=== PATIENT | female | born 1965 | race Caucasian/White ===

== ENCOUNTER 2017-04-05 08:51 | Emergency (ER) | payer MEDICARE ==
[2014-08-21 08:55] VITALS: BMI 38.8
[~2017-04-05 08:51] MED LIST: ASPIRIN EC81 M1 PO; ATIVAN0.5 MG PO; BACTRIM 400-801 TAB PO; BIOTIN PO; CELEXA40 MG PO; COREG 3.1253.125 MG PO; GLIPIZIDE10 MG PO; GLUCOTROL 5 MG T5 MG PO; HYDROCODONE-APA1 TAB PO; LEVOTHROID100 MCG PO; LIPITOR10 MG PO; LISINOPRIL10 MG GT; LISINOPRIL10 MG PO; LOPRESSOR25 MG PO; PAXIL PO; PEPCID20 MG PO; REQUIP XL2 MG PO; TRAZODONE HCL50 MG PO; VITAMIN B-1000 MCG/M SQ; VITAMIN D31000 UNI2 PO; ZANTAC PO; ZOCOR20 MG PO
[2017-04-05 09:52] LABS: APPEARANCE HAZY (CLEAR); BILIRUBIN NEGATIVE (NEGATIVE); COLOR YELLOW (YELLOW); GLUCOSE NEGATIVE (NEGATIVE); KETONE NEGATIVE (NEGATIVE); LEUKOCYTE ESTERASE 1+ (NEGATIVE); NITRITE POSITIVE (NEGATIVE); PROTEIN NEGATIVE (NEGATIVE); SPECIFIC GRAVITY 1.015 (1.005-1.020); UROBILINOGEN NORMAL (NORMAL)
[2017-04-05 09:54] LABS: BACTERIA MANY /hpf (NONE SEEN); EPITHELIAL CELLS 0-5 /hpf (0-5); RED CELLS - URINE 0-5 /hpf (0-5)
[2017-04-05 10:39] LABS: BASOPHILS 0.2 % (0-2); EOSINOPHILS 2.8 % (0-7); HEMATOCRIT 42.3 % (36.0-48.0); HEMOGLOBIN 13.7 g/dL (12-16); IMMATURE GRANULOCYTES 0.2 % (0-5); LYMPHOCYTES 23.9 % (15-50); MCH 29.8 pg (26.0-34.0); MCHC 32.4 g/dL (31.0-37.0); NEUTROPHILS 65.9 % (40-80); PLATELET COUNT 352 10x3/uL (130-400); RDW 13.6 % (11.5-14.5); WBC 12.3 10x3/uL (4.8-10.8)
[2017-04-05 10:58] LABS: ALBUMIN 3.5 g/dL (3.4-5.0); ALKALINE PHOSPHATASE 74 U/L (46-116); ALT (SGPT) 44 U/L (10-68); CALC OSMOLALITY 278 mosm/kg (275-300); CARBON DIOXIDE 26.3 mmol/L (21.0-32.0); CHLORIDE - SERUM 103 mmol/L (98-107); CREATININE - SERUM 0.8 mg/dL (0.6-1.3); GLUCOSE 163 mg/dL (74-106); POTASSIUM - SERUM 3.9 mmol/L (3.5-5.1); PROTEIN - SERUM 6.8 g/dL (6.4-8.2); SODIUM 138 mmol/L (136-145); UREA NITROGEN 10 mg/dL (7-18); eGFR NON AFRICAN AMERICAN 81 mL/min (90-120)
[2017-04-05 11:22] LABS: PRO BNP 9 pg/mL (0-125)
== END 2017-04-05 13:00 | disposition home or self-care (01) ==
LOC: D.ER 08:51
PROVIDERS: Emergency Medicine
DX: N39.0 Urinary tract infection, site not specified (principal); E86.0 Dehydration

== ENCOUNTER 2017-06-19 09:00 | Inpatient (IN) | payer MEDICARE ==
[~2017-06-19] VITALS: Ht 167.6 cm; Wt 101.2 kg
[~2017-06-19 09:00] MED LIST changes: -PAXIL PO; +PAXIL40 MG PO; +ZANTAC 7575 MG PO; -ZANTAC PO
[2017-06-19 09:42] LABS: BASOPHILS 0.2 % (0-2); EOSINOPHILS 5.5 % (0-7); HEMATOCRIT 38.7 % (36.0-48.0); HEMOGLOBIN 12.9 g/dL (12-16); IMMATURE GRANULOCYTES 0.3 % (0-5); MCH 30.2 pg (26.0-34.0); MCHC 33.3 g/dL (31.0-37.0); MCV 90.6 fL (80.0-100.0); MEAN PLATELET VOLUME 9.3 fL (7.4-10.4); MONOCYTES 11.3 % (2-11); NEUTROPHILS 65.7 % (40-80); PLATELET COUNT 327 10x3/uL (130-400); RBC 4.27 10x6/uL (4.00-5.40); RDW 13.7 % (11.5-14.5); WBC 13.3 10x3/uL (4.8-10.8)
[2017-06-19 09:58] LABS: ALBUMIN 3.2 g/dL (3.4-5.0); ALKALINE PHOSPHATASE 73 U/L (46-116); ALT (SGPT) 24 U/L (10-68); BILIRUBIN - TOTAL 0.45 mg/dL (0.2-1.3); CALC OSMOLALITY 274 mosm/kg (275-300); CALCIUM 8.4 mg/dL (8.5-10.1); CARBON DIOXIDE 28.8 mmol/L (21.0-32.0); CHLORIDE - SERUM 100 mmol/L (98-107); CREATININE - SERUM 0.7 mg/dL (0.6-1.3); GLUCOSE 130 mg/dL (74-106); POTASSIUM - SERUM 3.8 mmol/L (3.5-5.1); SODIUM 137 mmol/L (136-145); UREA NITROGEN 9 mg/dL (7-18); eGFR NON AFRICAN AMERICAN > 90 mL/min (90-120)
--- NOTE | 2017-06-19 12:05 | NUR ---
PT RECIEVED TO ROOM FROM ER. RESTING LUCAS, 02 AT 2L. RR ELEVATED, PT USES ACCESSORY MUSCLES TO BREATHE. O2 SAT IS 94, OTHER VS ARE STABLE. WILL RECONCILE HOME MEDS AND PERFORM ADMISSION ASSESSMENT, PT IN BED EATHING LUNCH, WILL CTM.
[2017-06-19 12:08] VITALS: BP 111/64; BMI 36.5
--- NOTE | 2017-06-19 13:00 | NUR ---
SPOKE TO JUAN PABLO AT [facility] FOR MED REC. REQUESTED THEM TO FAX IT TO US, INSTEAD READ OFF THE MED REC VIA TELEPHONE. MED REC COMPLETED.
[2017-06-19 13:06] LABS: PRO BNP 38 pg/mL (0-125)
--- NOTE | 2017-06-19 13:30 | NUR ---
SCDS PLACED ON PT AND PT EDUCATED ON PURPOSE. PT UP AD JOSELYN. INSTRUCTED TO REMOVE SCD PRIOR TO GETTING OOB.
[2017-06-19] MEDS ORDERED: GLUCOPHAGE850 MG PO (14:20)
[2017-06-19] MEDS ORDERED: GABAPENTIN100 MG PO (14:21)
[2017-06-19] MEDS ORDERED: PROVERA2.5 MG PO (14:22)
[2017-06-19] MEDS ORDERED: ZYPREXA2.5 MG PO (14:22)
[2017-06-19] MEDS ORDERED: ZANAFLEX2 M1 PO (14:23)
[2017-06-19 15:32] VITALS: BP 100/54
--- NOTE | 2017-06-19 18:02 | NUR ---
PT RESTING QUIETLY, RR EVEN AND UNLABORED, WILL GIVE REPORT ON PT CONDITION FOR THE DAY. GAVE PT NUMBER FOR FACILITY SHE IS LIVING AT ([facility]).
[2017-06-19 20:00] VITALS: BP 109/47
--- NOTE | 2017-06-19 20:15 | NUR ---
PT LYING IN BED, AWAKE, ALERT, DENIES ANY NEEDS. CONTINUE TO MONITOR CLOSELY. BED LOW, CALL LIGHT IN REACH, SIDE RAILS X 2, HOB 30-35 DEGREES.
[2017-06-20 01:15] VITALS: BP 105/63
--- NOTE | 2017-06-20 01:40 | NUR ---
PT CALLED REQUESTING THE "REST OF HER BEDTIME MEDICATIONS", STATING THAT SHE TAKES REQUIP AT BEDTIME, SHE SUFFERS FROM SEVERE RESTLESS LEG SYNDROME. PT IS ALSO ASKING ABOUT OTHER MEDICATIONS THAT SHE TAKES AT BEDTIME, THAT SHE HAS NOT BEEN GETTING WHILE IN HERE. I ASSURED PT THAT I WOULD REVIEW WITH [facility] NURSE SO THEY CAN SPEAK TO THE PHYSICIAN. AT THIS POINT, PT CANNOT TELL ME WHAT THE MEDICATIONS ARE. UPON REVIEWING MED REC, PT HAS BEEN TAKING ZYPREXA BID, BUT IT HAS NOT BEEN CONTINUED HERE. THAT COULD BE ONE OF THE MEDS SHE IS TALKING ABOUT. PT DENIES ANY OTHER NEEDS. PT STATES SHE IS UNABLE TO SLEEP AT THIS TIME. I WILL CONTINUE TO PROVIDE SUPPORTIVE CARE AND CONTINUE TO MONITOR PT CLOSELY.
[2017-06-20 04:30] VITALS: BP 115/66
[2017-06-20 06:50] LABS: BASOPHILS 0.1 % (0-2); EOSINOPHILS 0 % (0-7); HEMATOCRIT 38.5 % (36.0-48.0); HEMOGLOBIN 12.5 g/dL (12-16); IMMATURE GRANULOCYTES 0.4 % (0-5); LYMPHOCYTES 12.5 % (15-50); MCH 29.3 pg (26.0-34.0); MCHC 32.5 g/dL (31.0-37.0); MCV 90.4 fL (80.0-100.0); MEAN PLATELET VOLUME 9.8 fL (7.4-10.4); MONOCYTES 4.9 % (2-11); NEUTROPHILS 82.1 % (40-80); PLATELET COUNT 373 10x3/uL (130-400); RBC 4.26 10x6/uL (4.00-5.40); RDW 13.4 % (11.5-14.5); WBC 10.8 10x3/uL (4.8-10.8)
[2017-06-20 07:10] LABS: ANION GAP 8.2 mmol/L (8-16); BILIRUBIN - TOTAL 0.2 mg/dL (0.2-1.3); CARBON DIOXIDE 29.7 mmol/L (21.0-32.0); CREATININE - SERUM 0.9 mg/dL (0.6-1.3); POTASSIUM - SERUM 3.9 mmol/L (3.5-5.1); PROTEIN - SERUM 6.8 g/dL (6.4-8.2)
--- NOTE | 2017-06-20 08:39 | NUR ---
AM ROUNDING DONE WITH PATIENT LAYING ON RIGHT SIDE WITH O2 AT 3L PER NC AND HUM. WATER. RIGHT FA SEEN WITH SALINE LOCK. BILATERAL SCD'S ARE ON. DENIES ANY NEEDS AT PRESENT TIME. WILL CPOC.
[2017-06-20 10:24] VITALS: BP 106/48
--- NOTE | 2017-06-20 10:39 | NUR ---
PT AWAKE FAINT EXPIRATORY WHEEZING NOTED TO RIGHT APICAL AREA OF CHEST. PT SPO2 94 ON 2L NC. PT DISPLAYS NO S/S OF DYPSNEA OR RESPIRATORY DISTRESS. WILL CONTINUE TO ASSESS.
[2017-06-20 12:00] VITALS: BP 112/68
[2017-06-20 13:43] VITALS: Ht 167.6 cm; Wt 101.2 kg
--- NOTE | 2017-06-20 17:20 | NUR ---
PATIENT IS UP IN THE CHAIR AT THIS TIME.
[2017-06-20 17:43] VITALS: BP 122/62
[2017-06-20 20:00] VITALS: BP 118/65
--- NOTE | 2017-06-20 21:07 | NUR ---
PT AWAKE, ALERT, ORIENTED, REQUESTING PRN PAIN MEDICATION, DENIES ANY NEEDS. CONTINUE TO MONITOR CLOSELY. BED LOW, CALL LIGHT IN REACH, SIDE RAILS X 2, HOB 35-40 DEGREES.
--- NOTE | 2017-06-20 21:35 | NUR ---
PAGED DR. DOBSON TO GET REQUIP CHANGED FROM AM TO QHS PER PT REQUEST, SHE STATES SHE DOES NOT SLEEP WITHOUT IT R/T HER RLS. DR. DOBSON DID AUTHORIZE THE CHANGE AND AUTHORIZED TO GIVE THE FIRST DOSE THIS EVENING.
[2017-06-21 05:11] VITALS: BP 124/64
[2017-06-21 05:13] LABS: BASOPHILS 0.1 % (0-2); EOSINOPHILS 0.1 % (0-7); HEMATOCRIT 37.7 % (36.0-48.0); HEMOGLOBIN 12.4 g/dL (12-16); IMMATURE GRANULOCYTES 0.3 % (0-5); MCH 29.9 pg (26.0-34.0); MCHC 32.9 g/dL (31.0-37.0); MCV 90.8 fL (80.0-100.0); MEAN PLATELET VOLUME 9.7 fL (7.4-10.4); MONOCYTES 6.3 % (2-11); NEUTROPHILS 85.2 % (40-80); PLATELET COUNT 397 10x3/uL (130-400); RBC 4.15 10x6/uL (4.00-5.40); RDW 13.6 % (11.5-14.5)
[2017-06-21 05:30] LABS: ALBUMIN 3.1 g/dL (3.4-5.0); ALKALINE PHOSPHATASE 62 U/L (46-116); ALT (SGPT) 21 U/L (10-68); CALCIUM 8.7 mg/dL (8.5-10.1); CHLORIDE - SERUM 101 mmol/L (98-107); CREATININE - SERUM 0.8 mg/dL (0.6-1.3); GLUCOSE 378 mg/dL (74-106); MAGNESIUM - SERUM 1.6 mg/dL (1.8-2.4); PHOSPHOROUS 4.5 mg/dL (2.5-4.9); PROTEIN - SERUM 6.5 g/dL (6.4-8.2); SODIUM 136 mmol/L (136-145); eGFR NON AFRICAN AMERICAN 81 mL/min (90-120)
[2017-06-21 05:32] LABS: CALC OSMOLALITY 290 mosm/kg (275-300); POTASSIUM - SERUM 4.7 mmol/L (3.5-5.1); UREA NITROGEN 20 mg/dL (7-18)
--- NOTE | 2017-06-21 07:35 | NUR ---
AM ROUNDING DONE WITH NOT IN THE ROOM AT THIS TIME. SEEN COMING BACK IN WHHELCHAIR ON PORTABLE O2. WILL CPOC.
--- NOTE | 2017-06-21 08:48 | NUR ---
PATIENT TO REFUSE MIRALAX THIS AM, REPORTS THAT SHE HAD A LARGE BM YESTERDAY.
[2017-06-21 09:01] VITALS: BP 95/59
--- NOTE | 2017-06-21 14:25 | NUR ---
RECEIVING UPDRAFT TREATMENT AT THIS TIME. DENIES ANY FURTHER NEEDS. WILL CPOC.
[2017-06-21 16:18] VITALS: BP 110/59
[2017-06-21 17:59] VITALS: BP 114/69
--- NOTE | 2017-06-21 18:12 | NUR ---
PATIENT CALLED US TO THE ROOM STATING THAT THE DOCTOR SAID SHE COULD "TAKE OFF HER OXYGEN" WE TOLD HER THAT WE DID NOT HAVE AN ORDER FOR THIS AND TO LEAVE IT ON AT THIS PRESENT TIME. WILL CPOC.
[2017-06-21 20:00] VITALS: BP 103/58
--- NOTE | 2017-06-21 23:06 | NUR ---
NURSE ROUNDS 21:00 - PT SITTING UP IN BED, AWAKE, ALERT, ORIENTED, REQUESTING SOMETHING TO EAT. FSBS WAS 417. I EXPLAINED TO PT THAT WE HAVE TO WATCH HER DIET CLOSELY, HER GLUCOSE WAS EXTREMELY HIGH, MOST LIKELY DUE TO IV STEROIDS. PT VERBALLY AGREED THAT SHE WOULD WATCH HER SWEETS. I TOLD HER ONLY A TURKEY SANDWICH AT THIS POINT, NO JELLO, PUDDING, OR ICE CREAM UNLESS IT WAS SUGAR FREE. CONTINUE TO MONITOR CLOSELY. DENIED ANY OTHER NEEDS. BED LOW, CALL LIGHT IN REACH, SIDE RAILS X 2, HOB 40 DEGREES.
[2017-06-22 05:04] VITALS: BP 131/77
[2017-06-22 05:29] LABS: BASOPHILS 0.1 % (0-2); EOSINOPHILS 0.1 % (0-7); HEMATOCRIT 38.6 % (36.0-48.0); HEMOGLOBIN 12.4 g/dL (12-16); IMMATURE GRANULOCYTES 0.9 % (0-5); LYMPHOCYTES 19.1 % (15-50); MCH 29.3 pg (26.0-34.0); MCHC 32.1 g/dL (31.0-37.0); MCV 91.3 fL (80.0-100.0); MEAN PLATELET VOLUME 9.7 fL (7.4-10.4); MONOCYTES 10.4 % (2-11); NEUTROPHILS 69.4 % (40-80); PLATELET COUNT 431 10x3/uL (130-400); RBC 4.23 10x6/uL (4.00-5.40); RDW 13.4 % (11.5-14.5); WBC 13.4 10x3/uL (4.8-10.8)
[2017-06-22 05:52] LABS: ALKALINE PHOSPHATASE 65 U/L (46-116); ALT (SGPT) 23 U/L (10-68); BILIRUBIN - TOTAL 0.17 mg/dL (0.2-1.3); CALC OSMOLALITY 285 mosm/kg (275-300); CALCIUM 8.9 mg/dL (8.5-10.1); CARBON DIOXIDE 32.2 mmol/L (21.0-32.0); CHLORIDE - SERUM 98 mmol/L (98-107); CREATININE - SERUM 0.8 mg/dL (0.6-1.3); PROTEIN - SERUM 6.7 g/dL (6.4-8.2); SODIUM 136 mmol/L (136-145); UREA NITROGEN 22 mg/dL (7-18); eGFR NON AFRICAN AMERICAN 81 mL/min (90-120)
[2017-06-22 05:54] LABS: GLUCOSE 296 mg/dL (74-106)
--- NOTE | 2017-06-22 06:29 | NUR ---
PT RESTING COMFORTABLY, EASILY ROUSABLE TO VERBAL STIMULI, DENIES ANY NEEDS. CONTINUE TO MONITOR CLOSELY. BED LOW, CALL LIGHT IN REACH, SIDE RAILS X 2, HOB 35 DEGREES.
--- NOTE | 2017-06-22 08:15 | NUR ---
AM ROUNDS - PT IS AWAKE IN BED. NO YELLOW BAND. O2 AT 3L HUMIDIFIED VIA NC. SCD ARE ON AT THIS TIME. BED IV TO RIGHT FA, SL. BED AT LOWEST POSITION. CALL SANDERS IN USE/REACH. SIDE RAILS UP X2. NO NEEDS AT THIS TIME. WILL CONTINUE TO MONITOR
[2017-06-22 08:32] VITALS: BP 115/62
[2017-06-22 10:18] LABS: IMMUNOGLOBULIN E 48 IU/mL (0-100)
[2017-06-22 11:59] VITALS: BP 103/56
[2017-06-22 12:17] LABS: IMMUNOGLOBULIN A 147 mg/dL (87-352); IMMUNOGLOBULIN G 640 mg/dL (700-1600)
--- NOTE | 2017-06-22 14:41 | NUR ---
Nutrition follow-up: Diet: ADA PO intake 100% of lasst 3 meals. Labs reviewed Wt: 224# RDN following.
[2017-06-22 15:24] VITALS: BP 124/77
--- NOTE | 2017-06-22 18:03 | NUR ---
DR. DE LA GARZA TURNED PT'S O2 OFF AND SAID TO CHECK POX ON RA IN ABOUT 20MIN. RECHECHED POX, 78%. PLACE PT BACK ON AT 2L VIA NC. WILL CONTINUE TO MONITOR
--- NOTE | 2017-06-22 19:44 | NUR ---
RECEIVED REPORT, WILL ASSUME CARE OF PT, PT UP TO RESTROOM, DENIES ANY NEEDS AT THIS TIME, WILL CONTINUE PLAN OF CARE
[2017-06-22 20:00] VITALS: BP 136/75
--- NOTE | 2017-06-23 01:31 | NUR ---
CALL LIGHT IN REACH, WILL CONTINUE WITH PLAN OF CARE.
--- NOTE | 2017-06-23 04:15 | NUR ---
ASSESSMENT COMPLETE, SEE FLOWSHEET, BED IS LOW, SRX2, PT AWAKE, DENIES ANY NEEDS AT THIS TIME, CALL LIGHT IN REACH, WILL CONTINUE TO MONITOR
[2017-06-23 05:11] VITALS: BP 115/73
[2017-06-23 05:18] LABS: BASOPHILS 0.1 % (0-2); EOSINOPHILS 0 % (0-7); HEMATOCRIT 39.1 % (36.0-48.0); HEMOGLOBIN 12.9 g/dL (12-16); IMMATURE GRANULOCYTES 1.1 % (0-5); MCH 29.9 pg (26.0-34.0); MCV 90.5 fL (80.0-100.0); MEAN PLATELET VOLUME 9.6 fL (7.4-10.4); MONOCYTES 10.4 % (2-11); NEUTROPHILS 69.4 % (40-80); PLATELET COUNT 421 10x3/uL (130-400); RBC 4.32 10x6/uL (4.00-5.40); RDW 13.1 % (11.5-14.5); WBC 13.1 10x3/uL (4.8-10.8)
[2017-06-23 05:56] LABS: ALBUMIN 2.9 g/dL (3.4-5.0); ANION GAP 10.3 mmol/L (8-16); BILIRUBIN - TOTAL 0.24 mg/dL (0.2-1.3); CALCIUM 8.8 mg/dL (8.5-10.1); CARBON DIOXIDE 31.2 mmol/L (21.0-32.0); CREATININE - SERUM 0.9 mg/dL (0.6-1.3); POTASSIUM - SERUM 4.5 mmol/L (3.5-5.1); PROTEIN - SERUM 6.4 g/dL (6.4-8.2)
--- NOTE | 2017-06-23 07:30 | NUR ---
REPORT RECIEVED. PT RESTING QUIETLY, RR EVEN AND UNLABORD. PT CURRENTLY ON ROOM AIR, NO SIGNS OF DISTRESS. BED IN LOWEST POSTION, CALL SANDERS IN REACH, WILL CTM.
[2017-06-23 08:33] VITALS: BP 137/77
--- NOTE | 2017-06-23 11:45 | NUR ---
SPOKE TO DR. MULLER REGARDING PTS BS AT 407. GAVE NO NEW ORDERS, REPORTED THAT HE MAY INCREASE HER EVENING DOSE OF LANTUS LATER TODAY. WILL CTM.
[2017-06-23 12:01] VITALS: BP 141/67
[2017-06-23] MEDS ORDERED: VENTOLIN HFA18 GM INH (13:03)
[2017-06-23] MEDS ORDERED: ZITHROMAX500 MG PO (13:03)
[2017-06-23] MEDS ORDERED: PREDNISONE20 MG PO (13:05)
--- NOTE | 2017-06-23 14:30 | NUR ---
PT DISCHARGED. DISCHARGE INSTRUCTIONS PROVIDED, WILL GIVE COPY TO ASSISTED LIVING PERSONEL. IV REMOVED WITH CATHETER TIP INTACT, DRESSING APPLIED. WILL BE TRANSPORTED BACK TO ASSISTED LIVING FACILITY, IN THEIR TRANSPORT VEHICLE. PT DENIES OTHER NEEDS, WILL CTM.
--- NOTE | 2017-06-23 15:40 | NUR ---
[facility] PERSONEL HERE TO NIGHT BAKER PT. PAPERWORK GIVEN TO STAFF.
--- NOTE | 2017-06-23 16:13 | NUR ---
Patient Name: SURY BOLDEN Encounter No: [id number] : 1965 Primary Insurance: MEDICARE A & B Anticipated DC Date: 06-23-2017 Planned Disposition: Assisted Living External Planned Provider: [facility] LATE ENTRY: DISCHARGE PLANNING NOTE: * Is the patient Alert and Oriented? Yes 0 * How many steps to enter\exit or inside your home? 2 0 * PCP DR. EPSTEIN 0 * Pharmacy [facility] IN [place] 0 * Preadmission Environment Assisted Living 0 * Facility Name [facility] 0 * ADLs Partial Dependent 0 * Partial ADLs (Assistance needed) Medication Management 0 * Equipment None 0 * Other Equipment NO MEDICAL EQUIPMENT PROVIDER PREFERENCE 0 * List name and contact numbers for known caregivers / representatives who currently or will assist patient after discharge: JUAN PABLO BOTELLO, ADVOCACY DIRECTOR, [facility], 0 * Community resources currently utilized None 0 * Please name any agencies selected above. NONE 0 * Additional services required to return to the preadmission environment? No 0 * Can the patient safely return to the preadmission environment? Yes 0 * Has this patient been hospitalized within the prior 30 days at any hospital? No 0 CM MET WITH PT IN ROOM TO DISCUSS DISCHARGE PLANNING AND NEEDS. PT REPORTS LIVING AT [facility], THEY HELP WITH MEDICATIONS AND PROVIDE HER MEALS. PT HAS NO MEDICAL EQUIPMENT AND NO OUTSIDE SERVICES ASSISTING IN THE HOME. CM DISCUSSED AVAILABILITY OF HOME HEALTH, REHAB SERVICES AND MEDICAL EQUIPMENT. PT DENIES DISCHARGE NEEDS, REPORTS ANG AT [facility] WILL PICK HER UP FOR DISCHARGE HOME. IMPORTANT MESSAGE FROM MEDICARE PROVIDED AND EXPLAINED. CM CALLED [facility], , DISCUSSED DISCHARGE WITH JUAN PABLO ADVOCACY DIRECTOR, WHO WILL ARRANGE VAN TRADER FIXED INCOME AT 3PM TODAY. NO NURSE REPORT NEEDED AND [facility] WILL GET DISCHARGE INFORMATION FROM PT, NO NEED TO FAX ANYTHING. FIRE SYSTEMS INSPECTOR AND PT NOTIFIED. NO FURHTER NEEDS IDENTIFIED. Juanjose Rodriguez, CASE MANAGEMENT
== END 2017-06-23 15:40 | disposition home or self-care (01) | DRG 178 ==
LOC: D.ER 09:00 → D.M2 11:14 → D.SDCHOLD 06-20 11:11 → D.M2 06-20 11:13
PROVIDERS: Emergency Medicine; Internal Medicine Pulmonary Disease; ADMIT Family Medicine
DX: J69.0 Pneumonitis due to inhalation of food and vomit (principal); J44.0 Chronic obstructive pulmonary disease with (acute) lower respiratory infection; J44.1 Chronic obstructive pulmonary disease with (acute) exacerbation; J18.9 Pneumonia, unspecified organism; J30.9 Allergic rhinitis, unspecified; J32.9 Chronic sinusitis, unspecified; E03.9 Hypothyroidism, unspecified; F31.9 Bipolar disorder, unspecified; F41.9 Anxiety disorder, unspecified; E78.5 Hyperlipidemia, unspecified; E55.9 Vitamin D deficiency, unspecified; E11.9 Type 2 diabetes mellitus without complications; I10 Essential (primary) hypertension

== ENCOUNTER 2018-09-05 09:52 | Emergency (ER) | payer MEDICARE ==
[~2018-09-05] VITALS: Ht 167.6 cm; Wt 136.4 kg
[~2018-09-05 09:52] MED LIST changes: +GABAPENTIN100 MG PO; +GLUCOPHAGE850 MG PO; -HYDROCODONE-APA1 TAB PO; +NORCO 10-325 TA1 TAB PO; +PREDNISONE20 MG PO; +PROVERA2.5 MG PO; +VENTOLIN HFA18 GM INH; +ZANAFLEX2 M1 PO; +ZITHROMAX500 MG PO; +ZYPREXA2.5 MG PO
[2018-09-05 10:01] VITALS: Ht 167.6 cm; Wt 136.4 kg
[2018-09-05] MEDS ORDERED: VISTARIL25 MG PO (10:11)
[2018-09-05] MEDS ORDERED: NOVOLOG100 UNIT/1 SQ (10:12)
[2018-09-05] MEDS ORDERED: GLIMEPIRIDE4 MG PO (10:13)
[2018-09-05] MEDS ORDERED: ZOLOFT50 MG PO (10:13)
[2018-09-05] MEDS ORDERED: SEROQUEL100 MG PO (10:13)
[2018-09-05] MEDS ORDERED: SINEQUAN50 MG PO (10:13)
[2018-09-05] MEDS ORDERED: MIRALAX17 GM PO (10:14)
[2018-09-05] MEDS ORDERED: FLUTICASONE PRO16 GM NASAL (10:14)
[2018-09-05] MEDS ORDERED: INSULIN LANTUS SC (10:16)
[2018-09-05 10:42] LABS: BASOPHILS 0.3 % (0-2); EOSINOPHILS 4.8 % (0-7); IMMATURE GRANULOCYTES 0.3 % (0-5); LYMPHOCYTES 32.1 % (15-50); MCH 29.9 pg (26.0-34.0); MCHC 32.5 g/dL (31.0-37.0); MEAN PLATELET VOLUME 9.6 fL (7.4-10.4); MONOCYTES 9.1 % (2-11); NEUTROPHILS 53.4 % (40-80); PLATELET COUNT 303 10x3/uL (130-400); RBC 4.35 10x6/uL (4.00-5.40); RDW 13.2 % (11.5-14.5); WBC 8.9 10x3/uL (4.8-10.8)
[2018-09-05 11:00] LABS: ALBUMIN 3.2 g/dL (3.4-5.0); ALKALINE PHOSPHATASE 76 U/L (46-116); ALT (SGPT) 62 U/L (10-68); BILIRUBIN - TOTAL 0.33 mg/dL (0.2-1.3); CALC OSMOLALITY 281 mosm/kg (275-300); CALCIUM 8.9 mg/dL (8.5-10.1); CARBON DIOXIDE 24.3 mmol/L (21.0-32.0); CHLORIDE - SERUM 102 mmol/L (98-107); CREATININE - SERUM 0.8 mg/dL (0.6-1.3); GLUCOSE 291 mg/dL (74-106); POTASSIUM - SERUM 4.7 mmol/L (3.5-5.1); PROTEIN - SERUM 6.7 g/dL (6.4-8.2); SODIUM 136 mmol/L (136-145); UREA NITROGEN 9 mg/dL (7-18); eGFR NON AFRICAN AMERICAN 80 mL/min (90-120)
[2018-09-05 11:10] LABS: PRO BNP 9 pg/mL (0-125); TROPONIN-I < 0.017 ng/mL (0.000-0.060)
[2018-09-05 11:47] LABS: APPEARANCE CLEAR (CLEAR); BACTERIA NONE SEEN /hpf (NONE SEEN); BILIRUBIN NEGATIVE (NEGATIVE); COLOR YELLOW (YELLOW); GLUCOSE 1000 mg/dL (NEGATIVE); KETONE NEGATIVE (NEGATIVE); NITRITE NEGATIVE (NEGATIVE); PROTEIN NEGATIVE (NEGATIVE); RED CELLS - URINE NONE SEEN /hpf (0-5); SPECIFIC GRAVITY 1.015 (1.005-1.020); UROBILINOGEN NORMAL (NORMAL); WHITE CELLS - URINE NSEEN /hpf (0-5)
[2018-09-05 15:04] VITALS: BP 105/79
== END 2018-09-05 15:00 ==
LOC: D.ER 09:52
PROVIDERS: Family Medicine
DX: E11.65 Type 2 diabetes mellitus with hyperglycemia (principal); R51 Headache; R30.0 Dysuria